=== PATIENT | female | born 1990 | race Caucasian/White ===

== ENCOUNTER 2017-10-14 10:27 | Emergency (ER) | payer SELFPAY ==
[~2017-10-14] VITALS: Ht 154.9 cm; Wt 79.0 kg
[~2017-10-14 10:27] MED LIST: AMOX875T PO
[2017-10-14 10:31] VITALS: BP 166/111; PULSE 81; RESP 16; TEMP 98.2; O2SAT 98
[2017-10-14 11:43] VITALS: BP 128/81
[2017-10-14] MEDS ORDERED: FEXO1TAB97 PO (12:08)
[2017-10-14] MEDS ORDERED: FLUT50SP EACH NARE (12:08)
[2017-10-14] MEDS ORDERED: BENZ100 PO (12:13)
--- NOTE | 2017-10-14 12:13 | PD ---
HPI Chief Complaint: Cold / Flu Symptoms Time Seen by Provider: 11:36 Travel History International Travel<30 days: No Contact w/Intl Traveler<30days: No Traveled to known affect area: No History of Present Illness HPI 27-year-old female presents to the ED for evaluation of 5 day history of body aches, fevers, sinus congestion, right ear pain, right eye pain, clear rhinorrhea, nonproductive cough, nausea. She states that the symptoms onset gradually. She states that the eye pain came on last night, resolved when she was sleeping and returned this morning. She endorses photophobia. She denies foreign body sensation, pain with ocular motions, increased tearing or discharge. She can identify no acute injury to the eye. She endorses sick contacts, states that her daughter's been ill. She treated with some OTC medications with no improvement of symptoms. PFSH Past Medical History Hx Anticoagulant Therapy: No Diabetes: No Diminished Hearing: No Seizures: Yes (x1 episode) Tetanus Vaccination: Unknown ?: Unknown Social History Alcohol Use: Yes (SOCIAL) Tobacco Use: Yes (1 cig/day) Substance Use: No Allergies-Medications (Allergen,Severity, Reaction): Coded Allergies: trazodone (Unverified Allergy, Mild, ITCH, 10/14/17) COULD BE TRAMADOL Reported Meds & Prescriptions Reported Meds & Active Scripts Active Tessalon Perles (Benzonatate) 100 Mg Cap 200 Mg PO TID PRN 7 Days Fluticasone Nasal [place] 50 Mcg/Act Naspr 100 Mcg EACH NARE DAILY 14 Days 50 mcg/spray Nena-D 24 Hour Allergy (Fexofenadine-Pseudoephedrine ER 24 HR) 180-240 Cherie 1 Tab PO DAILY Review of Systems Except as stated in HPI: all other systems reviewed are Neg Physical Exam Narrative GENERAL: Well-nourished, well-developed white female in no acute distress. SKIN: Warm and dry. HEAD: Normocephalic. Atraumatic. EYES: No scleral icterus. No injection or drainage. No evidence of hordeolum. PERRLA. EOMI. FUNDUSCOPIC EXAM: The right funduscopic exam appeared within normal limits without papilledema, A-V nicking or blood associated with the optic disc. Fluorescein exam of the right eye negative. ENT: Pearly macario tympanic membranes bilaterally. Bilateral serous effusions. Nasal mucosa is moist. Oropharynx without erythema, edema or exudate. NECK: Supple, trachea midline. No JVD or lymphadenopathy. CARDIOVASCULAR: Regular rate and rhythm without murmurs, gallops, or rubs. RESPIRATORY: Breath sounds clear and equal bilaterally. No accessory muscle use. GASTROINTESTINAL: Abdomen soft, non-tender, nondistended. + Bowel sounds MUSCULOSKELETAL: No cyanosis, or edema. BACK: Nontender without obvious deformity. No CVA tenderness. Data Data Last Documented VS Vital Signs Date Time Temp Pulse Resp B/P (MAP) Pulse Ox O2 Delivery O2 Flow Rate FiO2 10/14/17 12:28 10/14/17 10:31 98.2 81 16 98 MDM Medical Decision Making Medical Screen Exam Complete: Yes Emergency Medical Condition: Yes Differential Diagnosis Viral syndrome versus viral conjunctivitis versus influenza versus pharyngitis versus foreign body versus iritis versus conjunctivitis versus other Narrative Course 27-year-old female presents to the ED for evaluation of 5 day history of body aches, fevers, sinus congestion, right ear pain, right eye pain, clear rhinorrhea, nonproductive cough, nausea. She states that the eye pain came on last night, resolved when she was sleeping and returned this morning. She endorses photophobia. She denies foreign body sensation, pain with ocular motions, increased tearing or discharge. Patient afebrile on presentation. Detailed eye exam is completely unremarkable. ENT exam reveals bilateral serous effusion is otherwise unremarkable. She is beyond the window treatment for influenza. This is viral syndrome. He is prescribed a short course of fluticasone, Nena and Tessalon Perles. She is instructed to use refrigerated artificial tears as needed for eye discomfort. Could be a viral conjunctivitis but see any erythema. She is provided the name of the on-call platform architect and instructed to follow up if her eye symptoms do not improve. She indicated understanding of instructions. She is stable and discharged home. Diagnosis Primary Impression: Viral syndrome Additional Impression: Pain, eye, right Referrals: Network Engineering Advisor Primary Care Physician Patient Instructions: General Instructions, Viral Syndrome (DC) Departure Forms: Tests/Procedures, Work Release Enter return to work date: Oct 16, 2017 Additional Instructions: Rest, hydrate. Push fluids such as sports drinks, Pedialyte, popsicles, clear broth. Take antihistamine/decongestant as prescribed. Intranasal steroids once a day as prescribed. Tessalon every 8 hours as needed for cough. Artificial tears available [id number] and In the sedimentation rate or may help to reduce or eye pain. Alternating Motrin and Tylenol every 4-6 hours as needed for continued fever, body aches, eye pain. Increase handwashing frequently to avoid the spread of the virus to other family members and the community. Disinfect commonly touched surfaces such as light switches, microwaves, remote controls. Replace toothbrush at the end of this illness. Follow-up with the primary care provider this week. Follow up with the platform architect this week if symptoms do not improve. Return to the ED for any urgent or emergent medical condition. Med/Other Pt SpecificInfo: Prescription(s) given Scripts Benzonatate (Tessalon Perles) 100 Mg Cap 200 MG PO TID Y for COUGH for 7 Days, CAP 0 Refills Prov: Sreedhar Long MD 10/14/17 Fluticasone Nasal [place] (Fluticasone Nasal [place]) 50 Mcg/Act Naspr 100 MCG EACH NARE DAILY for Allergy Management for 14 Days, #1 BOTTLE 0 Refills 50 mcg/spray Prov: Sreedhar Long MD 10/14/17 Fexofenadine-Pseudoephedrine ER 24 HR (Nena-D 24 Hour Allergy) 180-240 Cherie 1 TAB PO DAILY for Allergy Management, #30 TAB 0 Refills Prov: Sreedhar Long MD 10/14/17 Disposition: 01 DISCHARGE HOME Condition: Stable Maranda Thao Oct 14, 2017 12:13
== END 2017-10-14 12:28 | disposition home or self-care (01) ==
LOC: PHED 10:27 → PHEFT 12:28
DX: B34.9 Viral infection, unspecified (principal); H57.11 Ocular pain, right eye; F17.200 Nicotine dependence, unspecified, uncomplicated
CPT/HCPCS: 99284

== ENCOUNTER 2018-01-01 08:22 | Emergency (ER) | payer SELFPAY ==
[~2018-01-01] VITALS: Ht 160 cm; Wt 80.5 kg
[~2018-01-01 08:22] MED LIST changes: -AMOX875T PO; +BENZ100 PO; +FEXO1TAB97 PO; +FLUT50SP EACH NARE
[2018-01-01 08:27] VITALS: BP 129/71; PULSE 74; RESP 18; TEMP 97.9; O2SAT 97
[2018-01-01] MEDS ORDERED: AMOX250S2 PO (09:35)
--- NOTE | 2018-01-01 09:36 | PD ---
HPI Chief Complaint: Cold / Flu Symptoms Time Seen by Provider: 09:03 Travel History International Travel<30 days: No Contact w/Intl Traveler<30days: No Traveled to known affect area: No History of Present Illness HPI This is a 27-year-old female here with sore throat and nasal congestion 2 days. Her daughter is here being evaluated for strep throat. Symptom severity is mild to moderate. Pain is worse with swallowing. She denies difficulty eating, drinking or swallowing secretions. No change in voice. Has not attempted any OTC medications. Patient also complaining of left foot pain which is nontraumatic. She reports the pain is localized to the first MTP joint which is worse with weightbearing and relieved with rest. PFSH Past Medical History Medical History: Denies Significant Hx Hx Anticoagulant Therapy: No Diabetes: No Diminished Hearing: No Seizures: Yes (X's 1 episode ) Tetanus Vaccination: Unknown Influenza Vaccination: No ?: Not LMP: 1.5 weeks ago Past Surgical History Surgical History: No Previous Surgery Social History Alcohol Use: Yes (Holidays ) Tobacco Use: Yes (3 cigarettes/day) Substance Use: No Allergies-Medications (Allergen,Severity, Reaction): Coded Allergies: trazodone (Unverified Allergy, Mild, ITCH, 01/01/18) COULD BE TRAMADOL Reported Meds & Prescriptions Reported Meds & Active Scripts Active No Active Prescriptions or Reported Medications Review of Systems Except as stated in HPI: all other systems reviewed are Neg General / Constitutional: No: Fever Eyes: No: Visual changes HENT: Positive: Sore Throat, Congestion Cardiovascular: No: Chest Pain or Discomfort Respiratory: No: Shortness of Breath Gastrointestinal: No: Abdominal Pain Genitourinary: No: Dysuria Musculoskeletal: Positive: Pain (Left foot pain) Skin: No Rash Neurologic: No: Weakness Physical Exam Narrative GENERAL: Alert and well-appearing 19-year-old female. No distress. SKIN: Warm and dry. No rashes. No areas of ecchymosis. HEAD: Normocephalic. EYES: No injection or drainage. Ear/nose/throat: Pharyngeal erythema with mild tonsillar hypertrophy. No exudate. Uvula is midline. Airways patent. NECK: Supple, trachea midline. Mild anterior cervical lymphadenopathy CARDIOVASCULAR: Regular rate and rhythm without murmurs, gallops, or rubs. RESPIRATORY: Breath sounds equal bilaterally. No accessory muscle use. GASTROINTESTINAL: Abdomen soft, non-tender, nondistended. MUSCULOSKELETAL: No cyanosis, or edema. Left foot: Patient points to the first MTP joint as a source of pain. There is no overlying erythema, swelling, warmth , ecchymosis. No open wounds or sores. She has full range of motion of the toes. 2+ DP pulse. Normal sensation. Brisk cap refill. BACK: Nontender without obvious deformity. No CVA tenderness. Data Data Last Documented VS Vital Signs Date Time Temp Pulse Resp B/P (MAP) Pulse Ox O2 Delivery O2 Flow Rate FiO2 01/01/18 08:45 16 97 Room Air 01/01/18 08:27 97.9 74 129/71 (90) MDM Medical Decision Making Medical Screen Exam Complete: Yes Emergency Medical Condition: Yes Differential Diagnosis URI, strep pharyngitis, plantar fasciitis, arthritis, foot fracture unlikely Narrative Course 27-year-old female here pharyngitis. Daughter is currently being treated for strep pharyngitis. She also has nontraumatic foot pain. Physical exam of her foot is benign. There is no evidence of infection or trauma. She was instructed to take NSAIDs Patient is requesting liquid medication stating she has never been able to swallow pills. Diagnosis Primary Impression: Pharyngitis Qualified Codes: J02.9 - Acute pharyngitis, unspecified Additional Impression: Foot pain Qualified Codes: M79.672 - Pain in left foot Referrals: [facility] Additional Instructions: Medication as directed. Wear comfortable shoes Ibuprofen 800 mg every 6 hours as needed for pain Scripts Amoxicillin Liq (Amoxicillin Liq) 250 Mg/5 Ml Susp 500 MG PO BID for Infection for 10 Days, #200 ML 0 Refills Prov: Ally Dyer 01/01/18 Disposition: 01 DISCHARGE HOME Condition: Stable Ally Dyer Jan 01, 2018 09:36
== END 2018-01-01 09:47 | disposition home or self-care (01) ==
LOC: PHEFT 08:22
DX: J02.9 Acute pharyngitis, unspecified (principal); M79.672 Pain in left foot; Z72.0 Tobacco use; Z88.8 Allergy status to other drugs, medicaments and biological substances
CPT/HCPCS: 99283